=== PATIENT | male | born 1980 | race Caucasian/White ===

== ENCOUNTER 2022-08-22 14:22 | Emergency (ER) | payer SELFPAY ==
[2022-08-22] VITALS (8 sets, daily range): BP systolic 150–190; BP diastolic 95–122; PULSE 78–95; RESP 16–20; TEMP 36.5–37.2; O2SAT 96–100; BMI 28.1
--- NOTE | 2022-08-22 14:43 | PC.NURSE ---
ELIE NYE at
--- NOTE | 2022-08-22 14:56 | CT_ITS ---
PROCEDURE INFORMATION: Exam: CT Abdomen And Pelvis With Contrast Exam date and time: 08/22/2022 4:05 PM Age: 41 years old Clinical indication: Abdominal pain; Localized; Right; Additional info: H/o renal cancer, rle pain TECHNIQUE: Imaging protocol: Computed tomography of the abdomen and pelvis with contrast. Radiation optimization: All CT scans at this facility use at least one of these dose optimization techniques: automated exposure control; mA and/or kV adjustment per patient size (includes targeted exams where dose is matched to clinical indication); or iterative reconstruction. Contrast material: ISOVUE; Contrast volume: 75 ml; Contrast route: IV; REPORTING DATA: Count of CT and Cardiac NM exams in prior 12 months: This patient has received 0 known CTs and 0 known cardiac nuclear medicine studies in the 12 months prior to the current study. COMPARISON: No relevant prior studies available. FINDINGS: Liver: There is a diffuse decrease in hepatic parenchymal density consistent with fatty infiltration. Gallbladder and bile ducts: Cholelithiasis. Pancreas: Normal. No ductal dilation. Spleen: Multiple calcified splenic granulomata. Adrenal glands: Normal. No mass. Kidneys and ureters: 3.4 x 3.9 x 3.4 cm solid mass in the mid anterior right kidney. There is a central area of decreased density within this mass. Stomach and bowel: Unremarkable. No obstruction. No mucosal thickening. Appendix: No evidence of appendicitis. Intraperitoneal space: Unremarkable. No free air. No significant fluid collection. Vasculature: Unremarkable. No abdominal aortic aneurysm. Lymph nodes: Unremarkable. No enlarged lymph nodes. Urinary bladder: Unremarkable as visualized. Reproductive: Unremarkable as visualized. Bones/joints: Unremarkable. No acute fracture. Soft tissues: Small right inguinal hernia containing fat only. IMPRESSION: 1. Solid right renal mass consistent with primary renal neoplasm. 2. 3.4 cm simple right renal cyst. 3. Fatty liver. 4. Cholelithiasis.
[2022-08-22 15:19] LABS: Basophils # 0.1 K/mm3 (0-0.2); Basophils % 0.8 % (0.1-2.0); Eosinophils # 0.2 K/mm3 (0.0-0.4); Eosinophils % 2.2 % (0.1-12.0); Hematocrit 56.2 % (42.0-52.0); Lymphocytes # 2.1 K/mm3 (0.7-4.5); Lymphocytes % 25.9 % (10-50); Mean Corpuscular HGB Conc 33.3 g/dL (31.8-35.4); Mean Corpuscular Hemoglobin 29.8 pg (27.0-31.2); Mean Corpuscular Volume 89.6 fl (80-94); Mean Platelet Volume 7.6 fl (7.4-10.4); Monocytes # 0.6 K/mm3 (0.1-1.0); Monocytes % 7.3 % (1.7-9.3); Neutrophils # 5.2 K/mm3 (1.8-7.8); Neutrophils % 63.8 % (37.0-80.0); Platelet Count 263 K/mm3 (142-424); Red Blood Count 6.27 M/mm3 (4.60-6.20); Red Cell Distribution Width 13.3 % (11.5-17.5); White Blood Count 8.1 K/mm3 (4.8-10.8)
[2022-08-22 15:26] LABS: Hemoglobin 18.7 g/dL (14.1-18.0)
--- NOTE | 2022-08-22 15:32 | PC.NURSE ---
warm blankets provided
[2022-08-22 15:35] LABS: Chloride 104 mmol/L (98-107); Potassium 4.2 mmoL/L (3.5-5.1); Sodium 138 mmol/L (136-145)
--- NOTE | 2022-08-22 15:35 | PC.NURSE ---
BP 163/108 pre administration of hydralazine
[2022-08-22 15:38] LABS: Alanine Aminotransferase 41 U/L (12-78); Albumin Level 4.7 g/dl (3.5-5.0); Albumin/Globulin Ratio 1.4 (1.1-1.8); Alkaline Phosphatase 45 U/L (38-126); Anion Gap 11.2 mEq/L (5-15); Aspartate Amino Transferase 37 U/L (17-59); Bilirubin,Total 1.6 mg/dl (0.2-1.3); Blood Urea Nitrogen 19 mg/dl (9-20); Calcium 9.6 mg/dl (8.4-10.2); Carbon Dioxide 27 mmol/L (22.0-30.0); Creatinine Clearance Estimated 126 mL/min (50-200); Estimated Glomerular Filt Rate 92 ml/min (>60); GFR (African American) 111 ML/MIN (>60); Globulin 3.4 g/dL (1.3-3.2); Glucose 97 mg/dl (74-100); Total Protein,Serum 8.1 g/dl (6.3-8.2)
--- NOTE | 2022-08-22 16:00 | HMH.EDGENADL ---
Discharge Plan Disposition Patient Disposition: Home, Self-Care Condition: Good Chief Complaint: PAIN Referrals Follow up/Referrals: Lilliana Yeh APRN [Primary Care Provider] - See instructions Clinical Impressions Clinical Impression: Mass of kidney, Elevated blood pressure reading Discharge ED Provider: Jacob Woodard General Adult HPI General Chief complaint: PAIN Stated complaint: not able to walk, Legs and back Time Seen by Provider: 08/22/22 14:35 Mode of Arrival: Wheelchair Source of Information: Patient Limitations: No Limitations Description of Symptoms (Recalled from ER Triage Doc. by RN): Patient presents to ED with complaints of non-weight bearing to RLE secondary to severe pain x 3 weeks. denies trauma. Recent hx of 4 cm mass to right kidney and right adrenal malignancy. Patient scheduled new patient allison. with [facility] this past however unable to attend due to limitied mobility. Patient denies urinary/ stool incontinence and numbness/tingling to bilateral LE. Tx IBU and toroadol without improvement. History of Present Illness HPI narrative: 41yo M presents the ER secondary to lower extremity. Reports has been ongoing for 1 month. Denies any history of trauma or fall. States he has a mass in his right kidney and right adrenal gland that are malignant. Was supposed to be seen on for surgical evaluation but was unable to make his appointment because he lost his insurance and due to limited mobility. Complains of difficulty with voiding. Denies fever. Related Data Allergies Allergy/AdvReac Type Severity Reaction Status Date / Time No Known Allergies Allergy Verified 08/22/22 15:14 [facility] Disclaimer: The information contained in this section may have been updated after the patient was seen, as this information can be updated by other users. Social History Smoking Status: Current every day smoker alcohol intake: never current occupational status: other Travel in the last 8 weeks: None ROS Obtained: Yes Systems reviewed as appropriate & no additional complaints except as documented Physical Exam General General appearance: alert and in no apparent distress Head Head exam: atraumatic Eye Eye exam: Present PERRL ENT ENT exam: Present mucous membranes moist Neck Neck exam: Present trachea midline Chest Chest inspection: Present symmetric chest wall rise Respiratory Respiratory exam: Present normal lung sounds bilaterally; Absent respiratory distress Cardiovascular Cardiovascular exam: Present regular rate, normal rhythm and normal heart sounds Abdominal Exam Abdominal exam: Present soft; Absent distention, tenderness or guarding Extremities Exam Extremities exam: Present normal inspection, full ROM and normal capillary refill; Absent tenderness, edema or calf tenderness Neurological Exam Neurological exam: Present alert, oriented X3 and CN II-XII intact; Absent motor sensory deficit Psychiatric Psychiatric exam: Present normal affect and normal mood Skin Skin exam: Present warm and dry Medical Decision Making Medical Records Medical records reviewed: Yes I reviewed the patient's medical records. Efrain Inquiry Pt receiving controlled substance: No Vital Signs: 08/22/22 14:24 08/22/22 15:00 08/22/22 15:30 Temperature 99 F Temperature Source Oral Pulse Rate 84 78 Pulse Rate [Right] 84 Respiratory Rate 18 20 18 Blood Pressure 168/119 H 163/108 H Blood Pressure [Right Arm] 150/105 H Blood Pressure Mean 130 124 Blood Pressure Mean [Right Arm] 120 Blood Pressure Position [Right Arm] Supine 02 Sat by Pulse Oximetry 98 96 97 Oxygen Delivery Method Room Air 08/22/22 16:30 08/22/22 17:00 08/22/22 17:31 Temperature Temperature Source Pulse Rate 84 95 H 86 Pulse Rate [Right] Respiratory Rate 20 20 Blood Pressure 168/104 H 190/122 H 163/111 H Blood Pressure [Right Arm] Blood Pressure
--- NOTE | 2022-08-22 16:06 | PC.NURSE ---
pt in CT
--- NOTE | 2022-08-22 16:28 | PC.NURSE ---
notified of patient's increased pain
--- NOTE | 2022-08-22 16:46 | PC.NURSE ---
PT PROVIDED URINAL, UPDATED ON POC
--- NOTE | 2022-08-22 17:17 | PC.NURSE ---
Rounded on patient; patient requesting something for pain and something to drink. MD notified.
--- NOTE | 2022-08-22 17:32 | PC.NURSE ---
rounded on pt at this time, pt requested water and pain medication. Notified ER MD of pt requests, states okay to for pt to have water and verbal order for hydrocodone 5 mg tablet one time dose.
--- NOTE | 2022-08-22 17:38 | PC.NURSE ---
pt medicated per MAR, pt attempting to use urinal pt reports difficulty urinating for awhile . Per ER MD verbal order to me to offer pt a catheter to empty bladder and to measure residual amount of urine. Pt declined catheter. Pt adjusting in bed, turned over on his side, states I think if I just lay here for a minute I'll be able to pee . Notified ER MD pt refused catheter.
--- NOTE | 2022-08-22 17:58 | PC.NURSE ---
pt to restroom via wheelchair per his request. Pt requests to sit on toilet vs having staff help him to stand to urinate. Pt requests that staff not stay in restroom with him. Staff cautioned pt about concern for pt falling, pt verbalized understanding, states ill be okay I wont fall . staff assisted to toilet in sitting position, pt reported he would get his shorts on his own. pt educated to use call light in restroom and that staff would stand outside of restroom door
--- NOTE | 2022-08-22 18:03 | PC.NURSE ---
Pt was able to urinate independently in the bathroom. Pt assisted back to room via wheelchair. Pt self positioned to right side for comfort. Pt/family updated that MD will be to bedside to discuss disposition.
--- NOTE | 2022-08-22 18:19 | PC.NURSE ---
MD at beside discussing additional questions/concerns from mother/friend.
== END 2022-08-22 18:47 | disposition home or self-care (01) ==
PROVIDERS: Emergency Provider Family Medicine; PCP Nurse Practitioner Family
DX: N28.89 Other specified disorders of kidney and ureter (principal); M79.604 Pain in right leg; F17.200 Nicotine dependence, unspecified, uncomplicated
CPT/HCPCS: 74177; 80053; 85025; 96374; 96375; 99284; Q9967